=== PATIENT | male | born 1980 | race Caucasian/White ===

== ENCOUNTER 2025-01-28 12:41 | Emergency (ER) | payer OTHER, SELFPAY ==
[2025-01-28 12:42] VITALS: BP 124/65; PULSE 114; RESP 16; TEMP 36.9; O2SAT 98; BMI 31.4
--- NOTE | 2025-01-28 13:27 | EX.ED.DYSGE1 ---
HPI History of Present Illness Chief Complaint: Fever Narrative Narrative: 44-year-old male with no past medical history states a week ago he ate a chicken ter[employer]aki [employer] sandwich and then developed right sided abdominal pain. It was in the right lower abdomen and right testicle. It lasted all day long and he had dry heaving. It went away that evening and has not returned since. His states he has still had a decreased appetite and today developed a fever between 100-101 ?F and had 3 episodes of loose stool and they are concerned this could be appendicitis. He also reports a slight cough and joint pain. He takes no medications and has no surgical history. PFSH PFSH Allergy/AdvReac Type Severity Reaction Status Date / Time No Known Allergies Allergy Verified 01/28/25 12:45 Social History Smoking Status: Never smoker ROS ROS ED ROS Narrative Constitutional: Positive for fever. CVS: Negative for chest pain. Respiratory: Positive for cough. Negative for shortness of breath. GI: Positive for diarrhea. Negative for abdominal pain, nausea, vomiting. : Negative for dysuria. EXAM Physical Exam Narrative Exam Narrative: CONST: Patient sitting in no acute distress. EYES: Normal inspection. ENT: Normal inspection, moist mucous membranes. NECK: Normal inspection. RESP: No respiratory distress, CTAB. CVS: Mildly tachycardic with regular rhythm, no murmur, no gallop. ABD: Soft and nontender, no guarding or rebound, nondistended. No tenderness over McBurney's point. SKIN: Color normal, no rash, warm, dry, intact. EXTREMITIES: Normal appearance, no pedal edema. NEURO: Alert and answering questions appropriately. PSYCH: Normal affect. Const Vital Signs: 01/28/25 12:42 01/28/25 13:13 Temperature 98.4 F Temperature Source Temporal Pulse Rate 114 H Respiratory Rate 16 Respiratory Effort Normal Respiratory Pattern Normal Blood Pressure 124/65 H Blood Pressure Mean 84 Pulse Ox 98 Oxygen Delivery Method Room Air MDM MDM MDM Narrative Medical decision making narrative: History gathered from: Patient and spouse 44-year-old male had RLQ abdominal pain a week ago which completely resolved after a day. He is now reporting a fever, congestion, slight cough, body aches, and diarrhea and presents because he was concerned this could be underlying appendicitis. He has not had abdominal pain since a week ago. Here he is afebrile, slightly tachycardic at 114, otherwise stable vital signs. His exam is benign and his abdomen is soft and completely nontender. I advised that I think this is more likely a viral illness and offered a COVID/flu/RSV swab which he declined. I have low clinical concern for appendicitis based on symptomatology and benign abdominal exam. Patient was offered labs and a CT scan but declined after discussion. I discussed return precautions and he was discharged in stable condition. Discharge Plan Triage Chief Complaint: Fever ED Midlevel Provider: Madeleine George ED Provider: Rey Padilla Dx/Rx/DC Orders Clinical Impression: Fever, Acute viral syndrome Instructions: ED Fever Control (Adult) Primary Care Provider: Claude Esteban Activity Restrictions/Additional Instructions: Take Tylenol or ibuprofen as needed for fever. Monitor your symptoms. At this time I think it is more likely you have a virus or flulike illness rather than appendicitis but if you develop abdominal pain please be reevaluated. Print Language: Chinese Disposition Disposition: Home, Self Care
--- NOTE | 2025-01-28 13:54 | EX.ED.DYSGE1 ---
HPI History of Present Illness Chief Complaint: Fever PFSH PFSH Allergy/AdvReac Type Severity Reaction Status Date / Time No Known Allergies Allergy Verified 01/28/25 12:45 Social History Smoking Status: Never smoker EXAM Physical Exam Const Vital Signs: 01/28/25 12:42 01/28/25 13:13 Temperature 98.4 F Temperature Source Temporal Pulse Rate 114 H Respiratory Rate 16 Respiratory Effort Normal Respiratory Pattern Normal Blood Pressure 124/65 H Blood Pressure Mean 84 Pulse Ox 98 Oxygen Delivery Method Room Air MDM MDM MDM Narrative Medical decision making narrative: I have personally performed a face to face assessment of the patient and have reviewed the AQUILES Note. I performed a substantive portion of the visit including all aspects of the following. My camejo findings include: History is [patient presents to the emergency department with complaint of fever and concern for appendicitis. Patient states that about 2 weeks ago he had an episode of right lower quadrant pain that had lasted about 12 hours. He had pain that radiated into his right testicle at the time and eventually pain resolved. He has not had the pain again. Several days ago he started with low-grade fever and cough and bodyaches. Now he thinks it might be appendicitis. His mother had apparently similar presentation where she just had minimal discomfort and then became septic because her appendix ruptured.] Exam is [HEENT-PERRLA, EOMI. Cranial nerves II through XII grossly intact. TMs clear. Mucous membranes moist. No adenopathy. Cardiovascular-regular rate and rhythm without murmur or ectopy Lungs-clear to auscultation, chest wall stable without crepitus or subcu emphysema Abdomen-normoactive bowel sounds, soft, nontender, no rebound or rigidity, no peritoneal signs. Patient has no tenderness on exam of his abdomen. There is no rebound or rigidity or peritoneal signs. He does feel warm to the touch. Extremities-intact ?4, normal range of motion, normal pulses, atraumatic] Medical Decison Making [patient presents with fever and cough and bodyaches likely consistent with a viral syndrome. His abdominal exam is benign and he said a few episodes of loose stool. Suspicion very low for appendicitis and I discussed this with him and his however if they were insisting on obtaining a CT scan to evaluate I would be happy to order the test knowing that my clinical suspicion is very low. Also wanted to order testing for COVID flu and RSV. Patient states that he does not want to have testing for COVID flu and RSV as he suspects he may have the flu. They wanted to hold off on any imaging at this time and states that if if his abdominal pain worsens he will come back. Clinically I suspect he may have had a kidney stone that he passed several weeks ago and the pain has not come back. I told him I would order a urine and some blood work and at this point did not want to have anything more done. They are advised to return if worsening pain, vomiting, urinary symptoms, or condition should worsen anyway] Other additions or changes: [None] Discharge Plan Triage Chief Complaint: Fever ED Midlevel Provider: Madeleine George ED Provider: Rey Padilla Dx/Rx/DC Orders Clinical Impression: Fever, Acute viral syndrome Instructions: ED Fever Control (Adult) Primary Care Provider: Claude Esteban Activity Restrictions/Additional Instructions: Take Tylenol or ibuprofen as needed for fever. Monitor your symptoms. At this time I think it is more likely you have a virus or flulike illness rather than appendicitis but if you develop abdominal pain please be reevaluated. Print Language: Japanese Disposition Disposition: Home, Self Care Discharge Date/Time: 01/28/25 14:24
== END 2025-01-28 14:24 | disposition home or self-care (01) ==
PROVIDERS: Emergency Provider Emergency Medicine; PCP Family Medicine; Visit Provider Emergency Medicine
DX: R50.9 Fever, unspecified (principal); B34.9 Viral infection, unspecified
CPT/HCPCS: 99282